=== PATIENT | male | born 1945 | race Caucasian/White ===

== ENCOUNTER 2019-12-11 06:17 | Inpatient (IN) | payer MEDICARE, OTHER ==
[2019-12-06 10:04] LABS: Basophils # (auto) 0.1 10 ^3/uL (0-0.2); Basophils % (auto) 0.9 % (0.0-2.0); Eosinophils # (auto) 0.3 10 ^3/uL (0-0.8); Eosinophils % (auto) 2.8 % (0.0-7.0); Hematocrit 44.9 % (41.0-53.0); Hemoglobin 14.9 g/dL (13.5-17.5); Lymphocytes # (auto) 2.4 10 ^3/uL (0.4-5.4); Lymphocytes % (auto) 22.7 % (10.0-50.0); Mean Corpuscular Hemoglobin 30.4 pg (28.0-32.0); Mean Corpuscular Hgb Conc. 33.1 g/dL (32.0-36.0); Mean Corpuscular Volume 91.8 fL (80.0-100.0); Monocytes # (auto) 0.6 10 ^3/uL (0-1.3); Monocytes % (auto) 5.6 % (0.0-12.0); Neutrophils # (auto) 7.3 10 ^3/uL (1.6-8.6); Platelet Count (auto) 211 10^3/uL (140-450); Red Blood Cells 4.89 10^6/uL (4.5-5.90); Red Cell Distribution Width 14.1 % (11.8-14.3); Urine Bacteria NONE SEEN /hpf (None Seen); Urine Blood Negative /uL (Negative); Urine Hyaline Cast FEW /lpf (0 - 2); Urine Mucus FEW (None Seen); Urine Specific Gravity 1.023 (1.001-1.035); Urine WBC 1 /hpf (0 - 3); White Blood Cell 10.8 10^3/uL (4.4-10.8)
[2019-12-06 10:13] LABS: INR 1.09 (0.9-1.15)
[2019-12-06 10:32] LABS: Albumin 3.6 g/dL (3.4-5.0); Calcium 9.5 mg/dL (8.5-10.1); Potassium 4.2 mmol/L (3.5-5.1)
[2019-12-06 10:36] LABS: BUN/Creatinine Ratio 16.1; Total Protein 6.8 g/dL (6.4-8.2)
[~2019-12-11] VITALS: Ht 185.4 cm; Wt 158.8 kg
[~2019-12-11 06:17] MED LIST: ASCO100076 PO; CALC1TAB47 PO; CHOL200031 PO; CYAN1TAB14 PO; DIGO0.12 PO; DOCU-80 PO; DOXY25TA21 PO; FERR-7 PO; FINA5TAB4 PO; HYDR-531 PO; HYDR25TA4 PO; IBUP800T24 PO; METO-169 PO; MISC-1089 PO; MULT-930 PO; NAPR220C PO; OMEG100078 PO; OMEP20TA PO; RIVA20TA PO; ROSU1TAB13 PO; TAMS0.4C36 PO; TIZA2CAP7 PO; [UNRECOGNIZED DRUG - CODE] PO
[2019-12-11] MEDS ORDERED: BUPIVACAINE W/ EPINEPH 0.25% INJ 50ML MDV ONE (07:10)
[2019-12-11] MEDS ORDERED: VANCOMYCIN HCL 1000 MG VL ONE (07:13)
[2019-12-11] MEDS ORDERED: KETOROLAC TROMETH 15 mg/ml 1ML VL ONE (07:14)
[2019-12-11] MEDS ORDERED: ACETAMINOPHEN IV 1000 MG/100ML (10MG/ML) IV ONE (07:15)
[2019-12-11] MEDS ORDERED: CELECOXIB 100 MG CAP PO ONE (07:15)
[2019-12-11] MEDS ORDERED: MORPHINE SULF(PF) 0.5MG/ML 10ML VIAL ONE (07:16)
[2019-12-11] MEDS ORDERED: CELECOXIB 100 MG CAP ONE (07:17)
[2019-12-11] MEDS ORDERED: ceFAZolin 1GM/50ML 100 ML IV ONE (07:17)
[2019-12-11] MEDS ORDERED: ACETAMINOPHEN IV 100 ML IV ONE (07:17)
[2019-12-11] MEDS ORDERED: LIDOCAINE 1% HCL (LOCAL ANESTH.) INJ 20ML MDV ONE (07:34)
[2019-12-11] MEDS ORDERED: METOCLOPRAMIDE HCL 5MG/ml INJ 2ml VIAL ONE (07:43)
[2019-12-11] MEDS ORDERED: MIDAZOLAM HCL 1MG/1ML-2 ML VIAL ONE (07:43)
[2019-12-11] MEDS ORDERED: ETOMIDATE (2MG/ML) 20ML VIAL IV ONE (07:45)
[2019-12-11] MEDS ORDERED: ROCURONIUM 10MG/ML 10ML VIAL IV ONE (07:46)
[2019-12-11] MEDS ORDERED: SUCCINYLCHOLINE CHLORIDE 20 MG/ML 10ML VIAL IV ONE (07:47)
[2019-12-11] MEDS ORDERED: fentaNYL CITRATE 100 MCG/2 ML VL ONE (08:13)
[2019-12-11] MEDS ORDERED: ePHEDrine SULFATE 50 MG/ML AMP ONE (08:14)
[2019-12-11] MEDS ORDERED: STERILE WATER 10 ML ONE (08:14)
[2019-12-11] MEDS ORDERED: ONDANSETRON HCL 4 MG/2 ML VIAL IV PRN (08:30)
[2019-12-11] MEDS ORDERED: NALOXONE HCL 0.4 MG/ML VIAL IV PRN (08:30)
[2019-12-11] MEDS ORDERED: KETOROLAC TROMETH 30 MG/ML 1ML VIAL ONE (10:13)
[2019-12-11] MEDS ORDERED: NEOSTIGMINE 1 MG/ML INJ (10mg/10ML VIAL) ONE (10:13)
[2019-12-11] MEDS ORDERED: GLYCOPYRROLATE 0.2 MG/ML 1ML VIAL ONE (10:13)
[2019-12-11] MEDS: HYDROmorphone HCL 2 MG/ML VL IV PRN ×7 (10:57→11:55)
[2019-12-11] MEDS ORDERED: HYDROmorphone HCL 2 MG/ML VL IV PRN (11:00)
[2019-12-11] MEDS ORDERED: DOCUSATE SOD 100 MG CAP PO PRN (11:00)
[2019-12-11] MEDS ORDERED: MORPHINE SULF INJ 2 MG/ML SYRINGE 1ML IV PRN (11:00)
[2019-12-11] MEDS ORDERED: NITROGLYCERIN 0.4 MG SL TAB SL PRN (11:00)
[2019-12-11] MEDS ORDERED: DIGOXIN (250MCG/ML) 2 ML AMPULE ONE (11:19)
[2019-12-11] MEDS ORDERED: HYDROmorphone HCL 2 MG/ML VL ONE (11:23)
[2019-12-11] MEDS ORDERED: DIGOXIN (250MCG/ML) 2 ML AMPULE IV ONE (11:26)
[2019-12-11] MEDS ORDERED: SOTALOL HCL 80 MG TAB PO ONE ×2 (11:30→11:45)
[2019-12-11 12:30] VITALS: BP 111/76
[2019-12-11] MEDS: HYDROcodone-ACET 10/325MG TAB PO SCH ×4 (12:49→22:31)
[2019-12-11] MEDS: FERROUS SULFATE 325 MG TAB PO SCH (12:49)
[2019-12-11] MEDS: CHOLECALCIFEROL (VITD3) 1,000IU=25mCg TAB PO SCH (12:49)
[2019-12-11] MEDS: CYANOCOBALAMIN 500 MCG TAB PO SCH (12:49)
[2019-12-11] MEDS: LACTATED RINGER'S 1,000 ML IV SCH ×2 (12:50→20:55)
[2019-12-11] MEDS ORDERED: PNEUMOCOCCAL VACC POLYS 25 MCG/0.5 ML VIAL IM ONE (14:15)
[2019-12-11 16:19] LABS: Basophils # (auto) 0.1 10 ^3/uL (0-0.2); Basophils % (auto) 0.3 % (0.0-2.0); Eosinophils # (auto) 0 10 ^3/uL (0-0.8); Hematocrit 41.6 % (41.0-53.0); Hemoglobin 13.7 g/dL (13.5-17.5); Lymphocytes # (auto) 1.5 10 ^3/uL (0.4-5.4); Lymphocytes % (auto) 7.7 % (10.0-50.0); Mean Corpuscular Hemoglobin 30.1 pg (28.0-32.0); Mean Corpuscular Volume 91.2 fL (80.0-100.0); Monocytes # (auto) 1.1 10 ^3/uL (0-1.3); Monocytes % (auto) 5.8 % (0.0-12.0); Neutrophils # (auto) 16.6 10 ^3/uL (1.6-8.6); Neutrophils % (auto) 86.2 % (37.0-80.0); Platelet Count (auto) 225 10^3/uL (140-450); Red Blood Cells 4.56 10^6/uL (4.5-5.90); Red Cell Distribution Width 13.6 % (11.8-14.3); White Blood Cell 19.3 10^3/uL (4.4-10.8)
[2019-12-11 16:37] LABS: Magnesium 1.6 mg/dL (1.6-2.6)
[2019-12-11 16:38] LABS: Albumin 3.1 g/dL (3.4-5.0); Calcium 9.1 mg/dL (8.5-10.1); Potassium 4.9 mmol/L (3.5-5.1)
[2019-12-11 16:41] LABS: BUN/Creatinine Ratio 17.9; Bilirubin, Total 0.8 mg/dL (0.2-1.0); Total Protein 6.2 g/dL (6.4-8.2)
[2019-12-11 17:11] VITALS: BP 124/76
[2019-12-11] MEDS ORDERED: DIGOXIN 0.125 MG TAB PO SCH (18:00)
[2019-12-11] MEDS ORDERED: HCTZ 25 MG TAB PO SCH (18:00)
[2019-12-11] MEDS ORDERED: METOPROLOL SUCCINATE XL 50 MG TAB PO SCH (18:00)
[2019-12-11] MEDS ORDERED: TAMSULOSIN HYDROCHLORIDE 0.4 MG CAP PO SCH (18:00)
[2019-12-11] MEDS ORDERED: FINASTERIDE 5 MG TAB PO SCH (18:00)
[2019-12-11] MEDS ORDERED: MAGNESIUM GLUCONATE 500 MG PO SCH (18:00)
[2019-12-11] MEDS ORDERED: RIVAROXABAN 20 MG TAB PO SCH (18:00)
[2019-12-11 21:39] VITALS: BP 127/78
[2019-12-11] MEDS ORDERED: SOTALOL HCL 80 MG TAB PO SCH (22:00)
[2019-12-11] MEDS: SOTALOL HCL 80 MG TAB PO SCH (22:31)
[2019-12-12] MEDS: HYDROcodone-ACET 10/325MG TAB PO SCH ×2 (02:36→06:38)
[2019-12-12 04:38] VITALS: BP 134/69
[2019-12-12] MEDS: LACTATED RINGER'S 1,000 ML IV SCH (06:38)
[2019-12-12 06:54] LABS: Hematocrit 35.4 % (41.0-53.0); Hemoglobin 12.1 g/dL (13.5-17.5)
[2019-12-12 07:17] LABS: Potassium 3.7 mmol/L (3.5-5.1)
[2019-12-12 07:25] LABS: BUN/Creatinine Ratio 21.5; Bilirubin, Total 0.9 mg/dL (0.2-1.0); Calcium 9.2 mg/dL (8.5-10.1); Total Protein 5.9 g/dL (6.4-8.2)
[2019-12-12] MEDS: SOTALOL HCL 80 MG TAB PO SCH (08:55)
[2019-12-12] MEDS: FERROUS SULFATE 325 MG TAB PO SCH (08:55)
[2019-12-12] MEDS: CYANOCOBALAMIN 500 MCG TAB PO SCH (08:56)
[2019-12-12] MEDS: CHOLECALCIFEROL (VITD3) 1,000IU=25mCg TAB PO SCH (08:56)
[2019-12-12 09:00] VITALS: BP 118/69
[2019-12-12] MEDS ORDERED: PANTOPRAZOLE 40 MG TAB PO SCH (10:00)
[2019-12-12] MEDS ORDERED: MULTIPLE VITAMINS W/ MINERALS TAB PO SCH (10:00)
[2019-12-12 10:22] VITALS: BP 118/69
== END 2019-12-12 11:20 | disposition home or self-care (01) | DRG 483 ==
LOC: TELE 06:17 → EDSTATUS 09:30 → EAST 15:41 → TELE-EAST 22:56
PROVIDERS: ADMIT Orthopaedic Surgery Adult Reconstructive Orthopaedic Surgery; ATTEND Internal Medicine
PROC: 0RRJ00Z Replacement of Right Shoulder Joint with Reverse Ball and Socket Synthetic Substitute, Open Approach (ICD-10-PCS; principal; 2019-12-11 07:41)
DX: T84.028A Dislocation of other internal joint prosthesis, initial encounter (principal); D68.59 Other primary thrombophilia; I48.91 Unspecified atrial fibrillation; Y83.8 Other surgical procedures as the cause of abnormal reaction of the patient, or of later complication, without mention of misadventure at the time of the procedure; Y92.89 Other specified places as the place of occurrence of the external cause
CPT/HCPCS: 36415; 73020; 80053; 80162; 81001; 83735; 83880; 84484; 85014; 85018; 85025; 85610; 85730; 86850; 86900; 86901; A4565; G0378; J0131; J0330; J0690; J1885; J2001; J2250